=== PATIENT | male | born 1995 | race Two or more races ===

== ENCOUNTER 2022-09-11 05:51 | Day surgery (SDC) | payer OTHER ==
[~2022-09-11 05:51] MED LIST: LOTREL 5-10 MG1 CAP PO
[2022-09-11] MEDS ORDERED: PERCOCET 5-3251 EACH PO (15:01)
== END 2022-09-11 16:20 | disposition home or self-care (01) ==
LOC: CIR.AMB 05:51
PROVIDERS: ATTEND Surgery
DX: K61.1 Rectal abscess (principal); Z20.822 Contact with and (suspected) exposure to COVID-19; I10 Essential (primary) hypertension; Z86.16 Personal history of COVID-19; F12.90 Cannabis use, unspecified, uncomplicated